=== PATIENT | female | born 1975 | race Caucasian/White ===

== ENCOUNTER 2018-04-01 12:59 | Emergency (ER) | payer MEDICARE ==
[~2018-04-01] VITALS: Ht 157.5 cm; Wt 70.3 kg
[2018-04-01 13:14] VITALS: BP_SYST 129
--- NOTE | 2018-04-01 13:53 | NUR ---
Patient to ER bed H3 to gown for evaluation. Side rails up.
--- NOTE | 2018-04-01 13:55 | NUR ---
ER Dr. Vernon at bedside examining patient.
--- NOTE | 2018-04-01 14:00 | NUR ---
Pt presents to ED for right eye crusting, redness, and irritation that she woke up with this morning. Pt reports that she's been sick with a nonproductive cough and cold-symptoms for the past week.
[2018-04-01 14:28] VITALS: BP_SYST 129
--- NOTE | 2018-04-01 14:28 | NUR ---
Patient given written and verbal discharge instructions and verbalizes understanding. ER MD discussed with patient the results and treatment provided. Patient in stable condition. ID arm band removed. Rx of Acular Opthalmic Soln & Ofloxacin Otic Soln given. Patient educated on pain management and to follow up with PMD. Pain Scale 0/10. Opportunity for questions provided and answered. Medication side effect fact sheet provided.
== END 2018-04-01 14:28 | disposition home or self-care (01) ==
LOC: SED 12:59
DX: B30.9 Viral conjunctivitis, unspecified (principal); R05 Cough
CPT/HCPCS: 99283